=== PATIENT | male | born 1940 | race Caucasian/White ===

== ENCOUNTER → 2024-05-08 06:34 | Outpatient (REF) | payer OTHER, SELFPAY | LOC: MRI 3T 06:34 | PROVIDERS: ATTENDING PHYSICIAN Specialist; FAMILY PHYSICIAN Internal Medicine Geriatric Medicine | DX: M25.551 Pain in right hip (principal) | CPT/HCPCS: 72148 ==

== ENCOUNTER 2025-07-18 14:09 | Emergency (ER) | payer OTHER, SELFPAY ==
[2025-07-18 14:15] VITALS: BP 132/71
--- NOTE | 2025-07-18 15:53 | ED.GENMED ---
History of Present Illness
General
Chief Complaint: Nose Bleed
Source: patient
Exam Limitations: none
Time Seen by Provider: 07/18/25 15:37
History of Present Illness
History of Present Illness:
84-year-old male on a baby aspirin presents with left-sided nosebleed onset this morning. He was unable to get up stop bleeding. He states he lost a significant amount of blood. He placed 2 tissues up either side of the nose and since then and
since being here he does notice no further bleeding. He denies chest pain or lightheadedness. No other complaints
Past History
Past History
ED Past Medical History: GERD and Other (BPH)
ED Past Surgical History: Other (Hernia surgery)
Social History
Tobacco: Former smoker
Alcohol: None
Drug: None
Living: with family
Phy Exam
Physical Exam
Physical Exam:
General: Well-appearing male no acute respiratory distress
HEENT normal cephalic atraumatic bilateral nasal cavities were inspected. The left anterior medial wall is friable evidence of prior bleeding. The right nasal cavity is patent without any sign of active bleeding. Posterior pharynx is patent
without any blood
Extremities: No cyanosis
Course
Orders/Labs/Results
Orders:
Orders
07/18/25 15:56
Complete Blood Count/With Diff Urgent
Abnormal Lab Results
07/18/25
15:56
RDW 17.1 H %
(11.5-14.5)
Abs Immat Gran (auto) 0.2 H 10^3/uL
(0-0.05)
Absolute Neuts (auto) 7.2 H 10^3/uL
(1.4-6.5)
Immature Gran % 2.3 H %
(0-0.5)
Neutrophils % 75.5 H %
(42.2-75.2)
Lymphocytes % 15.8 L %
(20.5-51.1)
07/18/25 15:56
Vital Signs
Initial and Last Documented VS:
Initial Vital Signs
Temp Pulse Resp BP Pulse Ox
98 F 81 16 132/71 98
07/18/25 14:15 07/18/25 14:15 07/18/25 14:15 07/18/25 14:15 07/18/25 14:15
Last Documented Vital Signs
Temp Pulse Resp BP Pulse Ox
98 F 81 16 132/71 98
07/18/25 14:15 07/18/25 14:15 07/18/25 14:15 07/18/25 14:15 07/18/25 15:54
MDM/Problems Addressed
Differential Diagnosis Includes:
Epistaxis now seemingly has stopped bleeding GAVE treatment options. Patient is a little weary as he had so much trouble getting a stop bleeding at home. Will check labs given his concern for excessive blood loss. Piece of cotton soaked with
lidocaine and epinephrine was placed to the left side of nose and we will attempt to cauterize
*Pulse Oximetry
SaO2: 98
Oxygen Mode of Delivery: Room air
Patient hypoxic: no
*Critical Care Note
Total Time (30-74mins, 75-104mins- exclusive of procedures): Not Applicable
Update Note
Update Note:
Cotton was removed and the area was cauterized. The patient was then observed for period time. There was no further bleeding. He was ambulatory in the room. Recommend he keep nasal mucosa moist and follow-up with ENT
ED Attending Note
-
Portions of this chart may have been created with voice recognition software.� Occasional wrong word or��sound alike� substitutions may have occurred due to the inherent limitations of voice recognition software.
Discharge Plan
Departure
Patient Disposition: Home (Routine Discharge)
Date of Disposition: 07/18/25
Time of Disposition: 16:57
Patient with high blood pressure during this ER visit?: No
Discharge Problem:
Acute anterior epistaxis
Instructions: Nosebleeds (DC)
Prescriptions:
No Action
acetaminophen 325 MG tablet
650 mg PO Q6HPRN PRN (Reason: headache/pain)
pantoprazole 40 MG tablet,delayed release (DR/EC)
40 mg PO DAILYPRN PRN (Reason: reflux)
atorvastatin 40 MG tablet
40 mg PO QPM Qty: 30 11RF
clopidogrel 75 MG tablet
75 mg PO DAILY Qty: 30 11RF
aspirin 81 MG tablet,chewable
81 mg PO DAILY 0RF
lisinopril 2.5 MG tablet
2.5 mg PO DAILY Qty: 30 11RF
metoprolol tartrate 12.5 MG tablet
12.5 mg PO BID Qty: 60 11RF
Rx Instructions:
Take Lopressor 12.5 mg (1/2 of a 25 mg tablet) twice a day
cyanocobalamin (vitamin B-12) 1,000 MCG tablet
1,000 mcg PO DAILY
cephalexin 500 MG capsule
500 mg PO QID 7 Days 0RF
Referrals:
Oliver Cleary MD [Family Provider, Internal Medicine]
Activity Restrictions/Additional Instructions:
Keep nasal mucosa moist with Vaseline. Return here for worsening symptoms otherwise follow-up with your doctor
Interventions
Interventions:
*Risk Screen - Suicide Last Done: 07/18/25 14:16
*General Assessment Last Done: 07/18/25 15:39
*Neglect/Abuse Screening Last Done: 07/18/25 14:16
*ED COVID-19 Vaccine History Last Done: 07/18/25 15:39
*ED Influenza Vaccine History Last Done: 07/18/25 15:39
[facility] Fall Risk Assessment Tool Last Done: 07/18/25 15:39
ED-EENT Assessment Last Done: 07/18/25 15:41
Discharge Date and Time
Print Language: MACEDONIAN
[2025-07-18 16:07] LABS: Hematocrit 39.6 % (39.0-52.0); Hemoglobin 14.0 g/dL (13.0-18.0); Mean Corp Hgb Conc. 35.4 g/dL (33.0-37.0); Mean Corpuscular Volume 83.5 fL (80.0-94.0); Nucleated Red Blood Cells % 0 % (-); Platelet Count 232 10^3/uL (130-400); Red Cell Dist. Width 17.1 % (11.5-14.5)
== END 2025-07-18 17:09 | disposition home or self-care (01) ==
LOC: EMR 14:09
PROVIDERS: Physician Assistant; EMERGENCY PHYSICIAN Student in an Organized Health Care Education/Training Program; FAMILY PHYSICIAN Internal Medicine Geriatric Medicine
DX: R04.0 Epistaxis (principal); Z87.891 Personal history of nicotine dependence
CPT/HCPCS: 30901; 99283; 85025